=== PATIENT | male | born 1980 | race Hispanic/Latino ===

== ENCOUNTER 2019-02-11 12:19 | Outpatient (CLI) | payer BC ==
[~2019-02-11 12:19] MED LIST: Gadobenate Dimeglumine 529 MG/1 ML (20ML VIAL) ONE
--- NOTE | 2019-02-11 13:43 | MRI ---
MRI BRAIN AND ORBITS WITH AND WITHOUT CONTRAST: DATE: 02/11/2019 HISTORY: 38-year-old male with left ocular pain TECHNIQUE: Multiplanar, multisequence MRI of the brain plus thin slices through the orbits, obtained pre and pos t IV injection of gadolinium based contrast agent. FINDINGS: The ventricles are normal in size and configuration. There is no midline shift or any other evidence of mass effect. There is no extra-axial fluid collection. There is no intra-axial signal abnormality, abnormal enhancement, mass, recent hemorrhage, or restricted diffusion. Bilateral globes are symmetrical with normal signal, with no abnormal enhancement. Bilateral extraocu lar muscles are symmetrical. No evidence of abnormal enhancement, mass, or edema involving bilateral optic nerves, intraconal spaces or extraconal spaces, of the orbits. Orbital apices and cav ernous sinuses are normal. Clivus has normal marrow signal. No impingement upon optic chiasm. Meckel's caves are bilaterally clear. IMPRESSION: Normal
== END 2019-02-11 12:20 | disposition home or self-care (01) ==
LOC: BICMRI 12:19
DX: H57.12 Ocular pain, left eye (principal)
CPT/HCPCS: 70553; A9577

== ENCOUNTER 2025-06-22 22:04 | Emergency (ER) | payer BC ==
[2025-06-22] MEDS ORDERED: Ibuprofen 800 MG TAB ONE (23:54)
[2025-06-23] MEDS ORDERED: Lidocaine 1% (PF) 30 ML VIAL ONE (00:02)
[2025-06-23] MEDS ORDERED: Bacitracin 1 PK ONE (00:50)
== END 2025-06-23 01:01 | disposition home or self-care (01) ==
LOC: ERS 22:04
DX: S61.215A Laceration without foreign body of left ring finger without damage to nail, initial encounter (principal); W26.0XXA Contact with knife, initial encounter; Y93.G3 Activity, cooking and baking
CPT/HCPCS: 12001; 99282